=== PATIENT | male | born 1990 | race Caucasian/White ===

== ENCOUNTER 2016-12-07 18:54 | Emergency (ER) | payer OTHER ==
[~2016-12-07] VITALS: Ht 175.3 cm; Wt 68.0 kg
[2016-12-07 18:55] VITALS: BP_SYST 138
--- NOTE | 2016-12-07 18:55 | NUR ---
BIB Officer in custody for medical clearance. Patient to ER bed 4 to gown for evaluation. Side rails up.
--- NOTE | 2016-12-07 18:57 | NUR ---
ER MD Hwang at bedside for evaluation
[2016-12-07] MEDS ORDERED: AZITHROMYCIN 250 MG TABLET PO ONE (19:00)
[2016-12-07] MEDS ORDERED: cefTRIAXone 250 MG VIAL IM ONE (19:00)
--- NOTE | 2016-12-07 19:05 | NUR ---
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 Left arm also noted to have needle crenshaw with abcess. Denies any other complaints. Afebrile.
[2016-12-07] MEDS ORDERED: LIDOCAINE 1%, 20 ML MDV 20 ML ONE (19:20)
[2016-12-07 19:41] VITALS: BP_SYST 136
--- NOTE | 2016-12-07 19:41 | NUR ---
Patient given written and verbal discharge instructions and verbalizes understanding. ER MD discussed with patient the treatment provided. Patient in stable condition. No acute distress or SOB upon discharge. ID arm band removed. Pain Scale 0/10. Opportunity for questions provided and answered.
== END 2016-12-07 19:41 ==
LOC: SED 18:54
DX: A64 Unspecified sexually transmitted disease (principal); Z02.89 Encounter for other administrative examinations
CPT/HCPCS: 96372; 99283; J0696; J2001; Q0144